=== PATIENT | female | born 1985 ===

== ENCOUNTER 2024-02-28 12:46 | Outpatient (CLI) | payer OTHER ==
[~2024-02-28 12:46] MED LIST: DOXYCYCLINE HY100 M1 PO; PREVACID15 MG PO; PREVACID30 MG PO
== END 2024-02-28 12:48 | disposition home or self-care (01) ==
LOC: SONOGRAMA 12:46
PROVIDERS: ATTEND Pathology Anatomic Pathology & Clinical Pathology
DX: R59.0 Localized enlarged lymph nodes (principal)